=== PATIENT | female | born 1975 | race Hispanic/Latino ===

== ENCOUNTER 2020-01-08 06:28 | Outpatient (CLI) | payer BC, OTHER ==
[2020-01-09 11:34] LABS: SARS-CoV-2 MS2 Positive; SARS-CoV-2 N Gene Negative; SARS-CoV-2 S Gene Negative; SARS-CoV-2 orf1ab Negative
== END 2020-01-08 06:29 | disposition home or self-care (01) ==
LOC: LABBT 06:28
PROVIDERS: ATTEND Obstetrics & Gynecology
DX: Z01.812 Encounter for preprocedural laboratory examination (principal); Z11.59 Encounter for screening for other viral diseases; D25.9 Leiomyoma of uterus, unspecified; N92.0 Excessive and frequent menstruation with regular cycle; R10.2 Pelvic and perineal pain; N94.6 Dysmenorrhea, unspecified
CPT/HCPCS: 87635; U0003

== ENCOUNTER 2020-01-11 05:56 | Day surgery (SDC) | payer BC ==
[2020-01-07 12:55] VITALS: BMI 32.7
--- NOTE | 2020-01-07 20:58 | HP ---
She is scheduled for surgery on 12/24/2019. HISTORY OF PRESENT ILLNESS: Ms. Mendez is a 44-year-old Latin-Salv[place] female with history of two prior sections, who has been experiencing very heavy menstrual bleeding and severe menstrual cramping. She has tried ibuprofen and heating pads for the menstrual pain which also forces her to lay in bed at times. She reports saturating a maxi pad in less than 2 hours and flows for 7 to 8 days. She has had no abnormal Pap smears with most recent Pap smear being normal 2 years prior. She had an ultrasound of the pelvis due to the heavy menstrual bleeding, which showed her to have numerous uterine fibroids with no adnexal masses seen. PAST MEDICAL AND SURGICAL HISTORY: She has had as noted deliveries x2. She has had a gastric sleeve procedure. She has had a D and C on deliveries of her children and an EGD. CURRENT MEDICATIONS: 1. Ibuprofen p.r.n. 2. control pill or Sprintec one daily. ALLERGIES: SHE HAS NO KNOWN DRUG ALLERGIES. SOCIAL HISTORY: Negative for excessive alcohol use . She smokes less than 5 cigarettes daily. FAMILY HISTORY: Significant for colon cancer in her father and leukemia in a brother. PHYSICAL EXAMINATION: VITAL SIGNS: The patient's height 5 feet 2 inches, weight 172 pounds, BMI of 31.5. Blood pressure 108/64, pulse 76, respirations 18, O2 saturation on room air 98%. HEENT: Within normal limits. CHEST: Clear to auscultation. HEART: Regular rate and rhythm. S1, S2 heart sounds. No murmurs, rubs, or gallops. ABDOMEN: Soft, nontender. Well-healed Pfannenstiel incision sites noted. PELVIC: Vulva and vagina had no lesions. Cervix had no lesions. Uterus was enlarged and irregular contour, approximately 14 week size. Adnexa were nontender with no masses. ASSESSMENT: This is a 44-year-old Latin-[place] female with two prior sections with symptomatic uterine fibroids, 14 week size. She has tried nonsteroidals and currently on oral contraceptives with continued bleeding and pain. The patient is desiring definitive surgical therapy. PLAN: Plan is to proceed with a robotic total laparoscopic hysterectomy with bilateral salpingectomies. Plan for ovarian preservation as long as ovaries are normal at time of surgery. Depending on the size of the uterus, most likely will need to place the uterus in an endobag and removed via the EXCITE procedure. Risks and benefits of the surgery have been discussed in detail and she is set for surgery on 01/11/20. Job ID: [id number]
[2020-01-08 16:21] LABS: BHCG - Serum Negative (NEGATIVE); Pregs Control Background? CLEAR/WHITE (CLR/WHITE); Pregs Control Bar Appear? YES (CONTROL BAR)
[2020-01-08 16:23] LABS: Hemoglobin 13.7 g/dL (12.0-16.0); Mean Corpuscular HGB CONC 33.1 g/dL (32.0-36.0); Mean Corpuscular Hemoglobin 28.5 pg (27.0-31.0); Mean Corpuscular Volume 86.2 fL (78.0-98.0); Mean Platelet Volume 8.3 fL (7.4-10.4); Platelet Count 317 thou/uL (130-400); RBC Distribution Width 12.1 % (11.5-14.5); Red Blood Cell (RBC) Count 4.79 mill/uL (4.20-5.40); White Blood Cell (WBC) Count 10.2 thou/uL (4.8-10.8)
[2020-01-11] MEDS ORDERED: Gabapentin 300 MG CAP ONE (06:08)
[2020-01-11] MEDS ORDERED: Famotidine/PF 20 mg/2ml Vial ONE (06:08)
[2020-01-11] MEDS ORDERED: CeleCOXIB 100 MG CAP ONE (06:08)
[2020-01-11] MEDS ORDERED: Fentanyl 250 MCG/5 ML VIAL ONE (06:47)
[2020-01-11] MEDS ORDERED: Bupivacaine PF 0.5% 30 ML VIAL ONE (07:00)
[2020-01-11] MEDS ORDERED: Lidocaine 1% w/Epinephrine 1:100K 20 ML VIAL ONE (07:00)
[2020-01-11] MEDS ORDERED: Midazolam HCl 2 mg/2 ml Vial ONE (07:13)
[2020-01-11] MEDS ORDERED: Promethazine HCl 25 MG/ML VIAL SLOW IVP PRN (09:11)
[2020-01-11] MEDS ORDERED: Ondansetron HCl/PF 4 MG/2 ML Vial IVP PRN (09:11)
[2020-01-11] MEDS ORDERED: Promethazine HCl 25 MG/ML VIAL IM PRN ×2 (09:11→10:19)
[2020-01-11] MEDS ORDERED: AFRIN NASAL MIST 15 ML BOT ONE (10:17)
[2020-01-11] MEDS ORDERED: Morphine 4 MG/ML VIAL SLOW IVP PRN (10:19)
[2020-01-11] MEDS ORDERED: HYDROcodone/Acetaminophen 5/325 mg Tablet PO PRN ×2 (10:19)
[2020-01-11] MEDS ORDERED: Zolpidem Tartrate 5 MG TAB PO PRN (10:19)
[2020-01-11] MEDS ORDERED: Bisacodyl 10 MG SUPP PR PRN (10:19)
[2020-01-11] MEDS ORDERED: diphenhydrAMINE 25 MG CAP PO PRN (10:19)
[2020-01-11] MEDS ORDERED: Ondansetron PF 4 MG/2 ML Vial IVP PRN (10:19)
[2020-01-11] MEDS ORDERED: Fentanyl 100 MCG/2 ML VIAL ONE ×3 (10:46→11:42)
[2020-01-11] MEDS ORDERED: Rocuronium Bromide 10 MG/ML (10ML VIAL) ONE (12:03)
[2020-01-11] MEDS ORDERED: Dexamethasone 20 MG/5 ML VIAL ONE (12:03)
[2020-01-11] MEDS ORDERED: Lidocaine 1% PF 5 ML VIAL ONE (12:03)
[2020-01-11] MEDS ORDERED: PROPOFOL 200 MG/20 ML VIAL ONE (12:03)
[2020-01-11] MEDS ORDERED: Ondansetron PF 4 MG/2 ML Vial ONE (12:03)
[2020-01-11] MEDS ORDERED: Glycopyrrolate 0.2 MG/ML 5 ML SYRINGE ONE (12:03)
[2020-01-11] MEDS: Sodium Chloride 0.9% 1,000 ML IV SCH ×2 (12:48→18:15)
[2020-01-11] MEDS: Ketorolac Tromethamine 30 MG/ML VIAL IVP SCH ×3 (13:06→23:49)
[2020-01-11] MEDS: Simethicone Chewable 80 MG TAB PO PRN (18:41)
[2020-01-12] MEDS: Sodium Chloride 0.9% 1,000 ML IV SCH (04:58)
[2020-01-12] MEDS ORDERED: Ibuprofen 800 MG TAB PO SCH (06:00)
[2020-01-12 06:02] LABS: Hemoglobin 12.1 g/dL (12.0-16.0); Mean Corpuscular HGB CONC 33.5 g/dL (32.0-36.0); Mean Corpuscular Hemoglobin 29.1 pg (27.0-31.0); Mean Corpuscular Volume 86.8 fL (78.0-98.0); Platelet Count 263 thou/uL (130-400); RBC Distribution Width 12.1 % (11.5-14.5); Red Blood Cell (RBC) Count 4.16 mill/uL (4.20-5.40); White Blood Cell (WBC) Count 8.8 thou/uL (4.8-10.8)
--- NOTE | 2020-01-12 08:01 | PRG ---
DATE OF SERVICE: 01/12/2020 SUBJECTIVE: The patient is tolerating her diet. She is ambulating and voiding without difficulty. Her pain control was adequate with oral medications. OBJECTIVE: VITAL SIGNS: Show her to be afebrile. Temperature is 98.5, pulse is 80, respirations are 16, blood pressure is 117/67. Postoperative hematocrit this morning is 36.2%. Her urine output has been excellent with over 2400 mL over the past shift. ABDOMEN: Her trocar sites are intact. There is expected tenderness and the abdomen is nondistended. : Vaginal area has no active bleeding. EXTREMITIES: Nontender in the lower extremities. ASSESSMENT AND PLAN: This is postoperative day 1 from a robotic total laparoscopic hysterectomy with bilateral salpingectomy with lysis of adhesions. The patient is progressing well with stable vital signs and expected postoperative hematocrit drop. She has met her discharge parameters and will be discharged this morning. She has prescription for tramadol 50 mg q.6 hours p.r.n. pain to take as needed and [id number] ibuprofen as directed. She has a followup in 2 and 6 weeks. Pathology is pending. Job ID: [id number]
--- NOTE | 2020-01-12 08:07 | DIS ---
DATE OF ADMISSION: 01/11/2020 DATE OF DISCHARGE: 01/12/2020 DIAGNOSES: 1. Symptomatic uterine fibroids. 2. Dysmenorrhea. 3. Pelvic pain. 4. Pelvic adhesive disease. PROCEDURES PERFORMED: 1. Robotic total laparoscopic hysterectomy with bilateral salpingectomy with the extracorporeal C-incision tissue extraction procedure. 2. Lysis of adhesions. SUMMARY OF HOSPITAL COURSE: Ms. Vanessa Kraft is a 44-year-old Latin-[place] female with prior C-sections x2, had severe dysmenorrhea, menorrhagia, and chronic pelvic pain, has been unresponsive to medical management. She underwent definitive surgical therapy with a robotic TLH, bilateral salpingectomy with lysis of adhesions, and removal of tissue via the ExCITE procedure. Postoperatively, the patient has done well. Her hematocrit is 36.2% this morning. Vital signs have been stable and urine output has an excellent. She is ambulating, voiding, and tolerating regular diet without complications. She was discharged home postop day number 1 morning, and has scripts for tramadol 50 mg q.6 hours p.r.n. pain and [id number] ibuprofen. Follow up in 2 and 6 weeks, and pathology is pending. Job ID: [id number]
[2020-01-12 08:56] VITALS: BP 122/73; TEMP 98.7
[2020-01-12] MEDS ORDERED: Lactinex Tablet PO SCH (09:00)
--- NOTE | 2020-01-12 09:02 | OP ---
DATE OF PROCEDURE: 01/11/2020 PREOPERATIVE DIAGNOSES: 1. 44-year-old female, prior section x2 with uterine fibroids. 2. Menorrhagia and dysmenorrhea, unresponsive to medical management. 3. Pelvic pain. POSTOPERATIVE DIAGNOSES: 1. 44-year-old female, prior section x2 with uterine fibroids. 2. Menorrhagia and dysmenorrhea, unresponsive to medical management. 3. Pelvic pain. 4. Pelvic adhesive disease. PROCEDURES PERFORMED: 1. Robotic total laparoscopic hysterectomy with bilateral salpingectomy. 2. Lysis of adhesions. FINANCIAL CENTER MANAGER SURGEON: Elaina Zepeda PA-C ANESTHESIA: General endotracheal. ESTIMATED BLOOD LOSS: 25 mL. COMPLICATIONS: None. COUNTS: Correct x2. ANTIBIOTICS: 2 g Ancef on-call to OR. FINDINGS: 1. Normal bilateral fallopian tubes and ovaries. 2. Omental adhesions to the anterior uterus from prior sections with some dense adhesions to the anterior abdominal wall, the lower uterine segment and filmy adhesions, status post lysis of adhesions. 3. Clear urine present in Starkey catheter postprocedure and bladder was watertight to numerous testings intraoperatively and postoperatively. 4. Bilateral ureteral peristalsis visualized postprocedure. DISPOSITION: Recovery room, stable. DESCRIPTION OF PROCEDURE: The patient previously received informed consent in regard to surgery. She was taken back to the operating room, where she received a general endotracheal anesthetic agent without complications. She was placed in the dorsal lithotomy position with the use of Selvin stirrups and prepped and draped in usual sterile fashion. At this time, a side-arm speculum was placed in the vagina after Starkey catheter had been placed. The cervix was grasped with single-tooth tenaculum. The uterus sounded to 11 cm. A size 10 cm CURT uterine manipulator with a 4 cm cervical cup was placed in usual fashion. The tenaculum and speculum were then removed. Attention was then turned to the abdomen, where prospective trocar sites were infiltrated with 0.5% Marcaine with epinephrine. A 12 mm supraumbilical incision was made. Veress needle was entered into the peritoneal cavity. The patient's pressure was noted to be less than 5 mm. Abdomen was insufflated to patient pressure of 15. Approximately 4.5 L of carbon dioxide gas was insufflated. At this time, a size 12 mm trocar was then placed through the supraumbilical incision. The robotic laparoscope was introduced through the trocar sleeve confirming proper entry. At this time, additional bilateral lower quadrant 8 mm trocars were placed under laparoscopic guidance along with a right upper quadrant 11 mm senior assistant manager port. There were omental adhesions just inferior to the umbilical port site, which limited our visibility of the uterus and operative mckeon. At this time, monopolar scissors were brought in from the left port and my senior assistant manager grasped the omental adhesions with atraumatic grasper on the right port. The laparoscope was then placed in the camera site and under direct visualization, I dissected omental adhesions both sharply and bluntly with the monopolar scissors. These areas were inspected and noted to be free of any bowel during this time. Once the operative field had been cleared and improved visualization, the robot was then docked in usual fashion. I broke scrub and then proceeded to carry out the surgery from the operative console while my senior assistant manager remained at the bedside. The uterus mobility was somewhat limited due to dense fibrous adhesion in the lower uterine segment to the anterior abdominal wall. We were able to manipulate it from right to left and we grasped the right fallopian tube, my senior assistant manager did, and I coagulated and transected that with bipolar fenestrated cautery and monopolar scissors. The tube was removed through the right upper quadrant senior assistant manager port. The right utero-ovarian ligament was then coagulated and transected confirming hemostasis. Serial coagulation of broad ligament hugging close to the uterine specimen was carried out until the right round ligament was reached. It again was coagulated and transected. The anterior leaf of the broad ligament and vesicouterine peritoneum were then incised coming laterally, which helped enter into the proper space between the bladder and the uterus. The vesicouterine peritoneum was then layered and direct visualization and blunt dissection, dissecting the bladder atraumatically past the cervical vaginal margin. The bladder was insufflated intermittently with water to help delineate its whereabouts. Then, I dissected and both cauterized and transected the dense fibrous adhesion in the lower uterine segment. This again was carefully carried out due to concern for possible bladder contents more inferior. We continued to dissect this under direct visualization and intermittently distended the bladder with water to ascertain its location and its proximity to our dissection. The bladder remained away from where we were doing our operative work. More mobility improved as we dissected the dense adhesion down. Then, we took the left fallopian tube, was grasped by my senior assistant manager, it was coagulated and transected. The tube was removed in the right upper quadrant port. The left uterine ovarian ligament was then coagulated and transected and serial coagulation and transection of the broad ligament again hugging close to uterus was carried out. The left round ligament was then reached. It was coagulated and transected. Again, the anterior leaf of the broad ligament was entered laterally. This allowed us to get in again the proper plane in the vesicouterine peritoneum that was dissected laterally towards the cervix and then in the layering technique, we continued to dissect the bladder atraumatically past the cervical vaginal margin which was again bladder's location. It was noted to be distended with intermittent filling and releasing confirming its position. The uterine vessels were then again coagulated in the internal cervical os region. They were transected with hemostasis confirmed. Once the bladder had been safely dissected past the cervical vaginal margin, we then proceeded to perform the colpotomy. This was carried out from 12 to 3 and 12 to 9 o'clock position and was completed then from 6 to 9 o'clock and 6 to 3 o'clock on the posterior surface of the cervix. The specimen was then released from the [employer] uterine manipulator. Prior to this time, a folded endobag had been placed through the small GelPOINT aperture in the umbilical incision site. My senior assistant manager exchanged the monopolar scissors with a large renata needle cab driver. The vaginal cuff was run and coagulated of any remaining bleeders prior to closure of the vaginal cuff. The Stratafix suture was brought into the field and the vaginal cuff was closed from the right angle full-thickness towards the left angle and back towards the midline. The excess suture and needle were removed in the right upper quadrant port. The pelvis again was irrigated and suctioned. Pedicle sites were coagulated of any areas of oozing. Good hemostasis was confirmed. The endobag that had been tied and folded up in accordion technique was brought down in the pelvis. The stay sutures were cut and these were removed. The specimen was then placed inside the endobag. The previously tied string and loop were utilized to bring the string through the loop to close off the endobag. My senior assistant manager then brought an atraumatic grasper through the GelPOINT in the umbilicus and pulled the drawstring up through the GelPOINT. The robot was then undocked and all the trocars were removed. The endobag was then pulled up through the small Felice O retractor. A GelPOINT system and small Felice O retractor were removed and then placed inside the endobag to protect the endobag during the morcellation. The specimen was grasped by José Miguel Valenzuela thyroid clamps and then I proceeded to remove the specimen in a C-cutting technique removing the specimen in its entirety. The endobag was also removed and was noted to be intact. The Felice O retractor was removed. Then, the fascial defect in the supraumbilical fascial region was closed with a running 0 Vicryl suture with good approximation. The other trocar sites were then closed with 4-0 Monocryl subcuticular sutures and Dermabond. The vaginal cuff was inspected vaginally with a sponge stick and hemostasis vaginally was also confirmed. The patient was awakened from anesthesia and transferred to recovery room in stable condition. Job ID: [id number]
[2020-01-12] MEDS: Simethicone Chewable 80 MG TAB PO PRN (09:23)
== END 2020-01-12 09:55 | disposition home or self-care (01) ==
LOC: SDC 05:56 → 3SW 05:56 → SDC 01-12 09:55
PROVIDERS: ATTEND Obstetrics & Gynecology
PROC: 0UT74ZZ Resection of Bilateral Fallopian Tubes, Percutaneous Endoscopic Approach (ICD-10-PCS; principal; 2020-01-11)
PROC: 0UT94ZZ Resection of Uterus, Percutaneous Endoscopic Approach (ICD-10-PCS; principal; 2020-01-11)
DX: D25.9 Leiomyoma of uterus, unspecified (principal); N72 Inflammatory disease of cervix uteri; N80.0 Endometriosis of uterus; N73.6 Female pelvic peritoneal adhesions (postinfective); F17.210 Nicotine dependence, cigarettes, uncomplicated; Z79.3 Long term (current) use of hormonal contraceptives; Z98.84 Bariatric surgery status
CPT/HCPCS: 36415; 84703; 85027; 86850; 86900; 86901; 88307; J0690; J1100; J1885; J2001; J2250; J2405; J2704; J3010; S0020; S0028

== ENCOUNTER 2020-05-13 11:53 | Outpatient (CLI) | payer BC ==
--- NOTE | 2020-05-13 12:58 | MMO ---
Bilateral MAMMO Bilat Screen [facility]. CLINICAL HISTORY: Patient is 44 years old and is seen for screening. The patient has the following family history of breast cancer: cousin female, maternal. The patient has no personal history of cancer. The patient has a history of right Cyst Aspiration in 2008 - benign. VIEWS: The views performed were: bilateral craniocaudal with tomosynthesis and bilateral mediolateral oblique with tomosynthesis. FILMS COMPARED: The present examination has been compared to prior imaging studies performed at [facility] on 05/05/2010, and at [facility] on 04/01/2018 and 05/12/2019. This study has been interpreted with the assistance of computer-aided detection. MAMMOGRAM FINDINGS: There are scattered fibroglandular densities. There are no suspicious masses, suspicious calcifications, or new areas of architectural distortion. IMPRESSION: THERE IS NO MAMMOGRAPHIC EVIDENCE OF MALIGNANCY. A ROUTINE FOLLOW-UP MAMMOGRAM IN 1 YEAR IS RECOMMENDED. THE RESULTS OF THIS EXAM WERE SENT TO THE PATIENT. ACR BI-RADS Category 1 - Negative MAMMOGRAPHY NOTE: 1. A negative mammogram report should not delay a biopsy if a dominant of clinically suspicious mass is present. 2. Approximately 10% to 15% of breast cancers are not detected by mammography. 3. Adenosis and dense breasts may obscure an underlying neoplasm. Reported by: KYUNG OROPEZA MD Electonically Signed: [id number]
== END 2020-05-13 11:54 | disposition home or self-care (01) ==
LOC: BICMAMMO 11:53
PROVIDERS: ATTEND Obstetrics & Gynecology
DX: Z12.31 Encounter for screening mammogram for malignant neoplasm of breast (principal); Z91.89 Other specified personal risk factors, not elsewhere classified
CPT/HCPCS: 77063; 77067

== ENCOUNTER 2021-05-16 13:13 | Outpatient (CLI) | payer BC | END 2021-05-16 13:14 | disposition home or self-care (01) | LOC: BICMAMMO 13:13 | PROVIDERS: ATTEND Family Medicine | DX: Z12.31 Encounter for screening mammogram for malignant neoplasm of breast (principal); Z80.3 Family history of malignant neoplasm of breast | CPT/HCPCS: 77063; 77067 ==

== ENCOUNTER 2023-07-09 09:57 | Outpatient (CLI) | payer BC | END 2023-07-09 09:58 | disposition home or self-care (01) | LOC: BICMAMMO 09:57 | PROVIDERS: ATTEND Family Medicine | DX: Z12.31 Encounter for screening mammogram for malignant neoplasm of breast (principal); Z80.3 Family history of malignant neoplasm of breast | CPT/HCPCS: 77063; 77067 ==

== ENCOUNTER 2024-02-02 22:01 | Emergency (ER) | payer BC ==
[~2024-02-02 22:01] MED LIST: Iopamidol-370 76% 500 ML MDV (1 ML CHARGE) ONE
[2024-02-02] MEDS ORDERED: Morphine 4 MG/ML VIAL ONE (22:36)
[2024-02-02] MEDS ORDERED: Ondansetron PF 4 MG/2 ML Vial ONE (22:37)
[2024-02-02 22:42] LABS: #Basophils 0.06 10x3/uL (0.0-0.2); %Basophils 0.7 % (0.0-1.0); %Eosinophils 4.1 % (0.0-10.0); %Lymphocytes 34.1 % (21.0-51.0); %Monocytes 4.8 % (0.0-10.0); %Neutrophils 55.9 % (42.0-75.0); Hematocrit 44.1 % (36.0-47.0); Hemoglobin 15.5 g/dL (12.0-16.0); Mean Corpuscular HGB CONC 35.1 g/dL (32.0-36.0); Mean Corpuscular Hemoglobin 30.8 pg (27.0-31.0); Mean Corpuscular Volume 87.5 fL (78.0-98.0); Mean Platelet Volume 9.9 fL (7.4-10.4); Platelet Count 274 10x3/uL (130-400); RBC Distribution Width 11.9 % (11.5-14.5); Red Blood Cell (RBC) Count 5.04 mill/uL (4.20-5.40)
[2024-02-02 23:06] LABS: ALT (SGPT) 16 U/L (8-55); AST (SGOT) 11 U/L (5-34); Albumin 3.9 g/dL (3.5-5.0); Alkaline Phosphatase 75 U/L (40-110); Anion Gap 12 mmol/L (10-20); BUN (Urea Nitrogen) 15 mg/dL (7.0-18.7); Bilirubin, Total 0.2 mg/dL (0.2-1.2); Calc. Creatinine Clearance 0 mL/min (70-130); Calcium 8.8 mg/dL (7.8-10.44); Carbon Dioxide 24 mmol/L (22-29); Chloride 105 mmol/L (98-107); Estimated GFR 73; Globulin 2.6 g/dL (2.4-3.5); Glucose 106 mg/dL (70-105); Lipase 37 U/L (8-78); Protein, Total 6.5 g/dL (6.0-8.3); Sodium 137 mmol/L (136-145)
[2024-02-02 23:07] LABS: Troponin I Less than 0.010 ng/mL (< 0.028)
[2024-02-03 00:21] LABS: BHCG - Serum Negative (NEGATIVE); Pregs Control Background? CLEAR/WHITE (CLR/WHITE); Pregs Control Bar Appear? YES (CONTROL BAR)
[2024-02-03] MEDS ORDERED: Dicyclomine 20 MG/2 ML VIAL ONE (00:22)
[2024-02-03 00:35] LABS: Bacteria/HPF None Seen HPF (None Seen); Bilirubin Negative (Negative); Blood, Urine 1+ (Negative); CAUTI Indications for Culture Pelvic or flank pain; Clarity Clear (Clear); Glucose, Urine (Dipstick) Normal (Negative); Ketone, Urine Negative (Negative); Leukocyte Negative Leu/uL (Negative); Nitrite Negative (Negative); Protein, Urine (Dipstick) Negative (Neg-Trace); Squamous Epithelial 0-3 HPF (0-3); Urobilinogen Normal mg/dL (Less than 2); WBC/HPF 0-3 HPF (0-3)
[2024-02-03 00:41] LABS: Urine Culture Reflex No No
[2024-02-03 00:46] LABS: Specific Gravity, Urine 1.048 (1.002-1.036)
== END 2024-02-03 01:02 | disposition home or self-care (01) ==
LOC: ERS 22:01
DX: K52.9 Noninfective gastroenteritis and colitis, unspecified (principal); F17.210 Nicotine dependence, cigarettes, uncomplicated
CPT/HCPCS: 36415; 74177; 80053; 81001; 83605; 83690; 84484; 84703; 85025; 93005; 96372; 96374; 96375; J2270; J2405; Q9967